=== PATIENT | male | born 1985 | race Caucasian/White ===

== ENCOUNTER → 2020-05-09 | Outpatient (CLI) | payer OTHER | LOC: COL.PUL 09:32 | DX: J45.990 Exercise induced bronchospasm (principal) ==

== ENCOUNTER → 2020-06-20 | Outpatient (CLI) | payer OTHER | LOC: COL.PUL 05-16 13:00 | DX: J45.990 Exercise induced bronchospasm (principal) ==

== ENCOUNTER → 2020-06-30 | Outpatient (CLI) | payer OTHER | LOC: COL.PUL 07:30 | DX: J45.990 Exercise induced bronchospasm (principal) | CPT/HCPCS: J7674 ==